=== PATIENT | female | born 1990 | race Caucasian/White ===

== ENCOUNTER 2017-03-06 19:54 | Inpatient (IN) | payer OTHER ==
--- NOTE | ~2017-03-06 | HP ---
Unit #: [id number] #: [id number] Patient: LA ERICKSON [id number] [place] [address] [id number] MR#: [id number] NAME: LA ERICKSON ROOM: [facility] Age: 26 Sex: F Admission Date: 03/06/2017 : 1990 Attending Physician: Jean Marie Roblero M.D. Admitting Physician: Jean Marie Roblero M.D. Primary Care Physician: Primary Care Physician No HISTORY AND PHYSICAL HISTORY OF PRESENT ILLNESS La is a 26 year old admitted to [facility] because of her drug use. She shoots heroin. PAST MEDICAL HISTORY 1. Long history of opioid abuse to include IV heroin. 2. Hepatitis C. PAST SURGICAL HISTORY Fractured left clavicle with ORIF. ALLERGIES Penicillin, Phenergan. SOCIAL HISTORY Smokes 1 pack per day. Denies alcohol. Admits to a long history of opioid abuse to include IV heroin. FAMILY HISTORY Medically noncontributory. REVIEW OF SYSTEMS CONSTITUTIONAL: No fever or chills. HEENT: Denies any sore throat, ear pain or runny nose. CARDIOVASCULAR: Denies chest pain, irregular heart rhythm or palpitations. CHEST: Denies shortness of breath or cough. No hemoptysis. GASTROINTESTINAL: Denies nausea, vomiting, diarrhea or chronic constipation. ENDOCRINE: Denies history of increased thirst or urination. No recent significant weight loss or gain. GENITOURINARY: Denies dysuria, frequency, or hematuria. SKIN: Denies any rashes. HEMATOLOGIC: Denies history of increased bleeding or bruising. MUSCULOSKELETAL: Denies any hot, swollen joints. No generalized muscle pain. NEUROLOGIC: Denies problems with vision or speech. No frequent, severe headaches. No numbness, tingling or weakness in any extremities. Denies loss of bladder or bowel control. CURRENT MEDICATIONS 1. Celexa 20 mg daily. 2. Trazodone 150 mg q.h.s. p.r.n. 3. Detox protocol. Unit #: [id number] #: [id number] Patient: LA ERICKSON PHYSICAL EXAMINATION GENERAL: Alert, well-nourished, in no apparent distress. VITAL SIGNS: Blood pressure 100/50, heart rate 78, respirations 16, temperature 98.6. WEIGHT: 160. HEIGHT: 5 feet 6 inches. SKIN: Warm and dry without rash or lesion. HEENT: Normocephalic. TMs not viewed. Oral and nasal passages clear. Conjunctivae clear. PERRLA. EOMs intact. NECK: Supple without lymphadenopathy or thyromegaly. HEART: Regular rate and rhythm without murmur. LUNGS: Clear. ABDOMEN: Soft, nontender. : Not done. EXTREMITIES: No evidence of cyanosis, clubbing or edema. Moves all without focal deficit. NEUROLOGICAL: Grossly within normal limits. Cranial Nerves: II: Visual arellano are intact. III, IV AND : Extraocular movements are intact. Pupils are equal, round and reactive to light. V: Facial sensation is grossly normal. VII: Facial movements and expression are normal. VIII: Auditory acuity grossly intact. IX, X: Uvula is midline. Phonation is normal. XI: Patient shrugs shoulders and turns head normally. XII: Tongue protrudes in the midline. Sensory and Motor Function: Sensory and motor sensation is grossly normal. Motor: moves all extremities well. Coordination: Gait is normal. Deep Tendon Reflexes: Intact. IMPRESSION Psychiatric admission. RECOMMENDATIONS PSYCHIATRIC: Per psychiatrist. MEDICAL: See no contraindications to participate in facility's activities. MEDICAL PROGNOSIS Good. MEDICAL CONDITION Stable. Dictated by... Dieter OsmanAHeath. for Jaden Lyn/sonia TD: 03/07/2017 19:53 JOB #: [id number] Unit #: [id number] #: [id number] Patient: LA ERICKSON HISTORY AND PHYSICAL Page 1 of 1 X Giovanna Narvaez X HISTORY AND PHYSICAL
--- NOTE | ~2017-03-06 | PN ---
Unit #: [id number] #: [id number] Patient: LUIS MIGUEL ERICKSON [id number] [facility] [address] [place] [address] [id number] MR#: [id number] NAME: LUIS MIGUEL ERICKSON ROOM: [facility] Age: 26 Sex: F Admission Date: 03/06/2017 : 1990 Attending Physician: Jean Marie Roblero M.D. Admitting Physician: Jean Marie Roblero M.D. Primary Care Physician: Jennifer Primary Care Physician TOMMY PROGRESS NOTES DATE 03/08/2017 SUBJECTIVE UPDATE This is a 26-year-old, white female who is here in the hospital with issues of opioid dependency and withdrawal as well as benzodiazepine dependency and withdrawal with significant depression. Patient reports feeling somewhat better today. Still notably having problems with sleep, appetite, restlessness, aches and pains, and twitching in the legs. Patient has been trying to attend some groups and activities, but still fairly isolative to self. No active SI today. MENTAL STATUS EXAM General appearance is a moderately groomed, white female. Improved eye contact today. Speech was clear and coherent with normal prosody. Mood was "a little better" with a congruent affect. Thought process and content were fairly organized and linear. No overt evidence of psychosis. Patient denied any active SI or HI today. Patient's memory was grossly intact. Associations were normal. She is alert and oriented x3. Cognitive function seems to be at baseline. Insight and judgment is limited, but improving. RECOMMENDATIONS Continue patient's admission for ongoing detox issues with symptoms as noted above. Vital signs appear to be fairly well managed at this time as other somatic symptoms resolve. Mood also seems to be showing improvement with no active SI. Will continue to monitor. Likely disposition soon if progress continues. Will continue to encourage compliance with groups and activities, socialization, and ambulation. Patient is in agreement. Dictated by... Jean Marie Roblero M.D. SARAN/ashley TD: 03/10/2017 07:44 JOB #: [id number] Unit #: [id number] #: [id number] Patient: LUIS MIGUEL ERICKSON PROGRESS NOTES Page 1 of 1 X Jean Marie Roblero MD PROGRESS NOTE
--- NOTE | ~2017-03-06 | PA ---
Unit #: [id number] #: [id number] Patient: LUIS MIGUEL ERICKSON [id number] [place] [address] [id number] I MR#: [id number] NAME: LUIS MIGUEL ERICKSON ROOM: P173 Age: 26 Sex: F Admission Date: 03/06/2017 : 1990 Date of Assessment: Attending Physician: Jean Marie Roblero M.D. Admitting Physician: Jean Marie Roblero M.D. PSYCHIATRIC ASSESSMENT LOCATION [facility], [facility], room #178, bed #1. DATE OF SERVICE 03/07/2017. INFORMANT The patient and chart both seem reliable. CHIEF COMPLAINT Got to stop using heroin. HISTORY OF PRESENT ILLNESS This is a 26-year-old white female who is admitted to the access services for issues with heroin dependency, Xanax dependency, and depressive symptoms with recent SI. On interview today, the patient was noted to be sleeping, but aroused easily. Reports issues with 2+ years of near daily heroin use of 1 to 2 g IV bore. The patient apparently lost a job recently because of her IV use, overdosing on heroin. She has been living in a prison house, but does have some support through family. The patient is single without children, but reports recent stressors including of other family members, obvious loss of her job, continued drug use, and ongoing depressive symptoms that she has not been treated for. The patient reports apparently overdosing this past weekend and that "scared the crap out of me" and now she is seeking treatment. The patient is open to aspects of care of all forms inpatient or out. The patient initially told the access personnel that she uses Xanax daily. The patient told me she uses 2 to 3 times a week so it is unclear how much she actually has been using, but her current detox symptoms include aches and pains, chills, feeling excessively fatigue, sleepiness, poor appetite, upset stomach, and, of course, depression and anxiety. She is denying any current SI at this time, but apparently was reporting to the multimedia educational specialist initially in the [facility]. Overall, the patient was noted to be somewhat diaphoretic, but no tremors were noted at this point. The patient's last use of any substance was yesterday afternoon prior to admission. PAST PSYCHIATRIC HISTORY Subjective depression, but no official treatment inpatient or out, unclear about recent overdose, being suicide attempt or accidental. The patient was vague in her response, but no history of hallucinations, HI, or being on psychiatric medications. Unit #: [id number] #: [id number] Patient: LUIS MIGUEL ERICKSON FAMILY HISTORY Significant for at least 2 family members including a sister had issues with drugs and alcohol beyond noncontributory. SOCIAL HISTORY The patient is single, no children, lives at a prison house, was recently fired from her job at the [employer], has some college education and support through peripheral family. MEDICAL HISTORY Has a history of hepatitis C. MEDICATION HISTORY The patient is not on any home medications at this time. Current medications in hospital include detox protocols as well as standard p.r.n. medications. ALLERGIES The patient denied any drug allergies with me, but according to chart, is allergic to amoxicillin and Phenergan. SUBSTANCE ABUSE HISTORY As noted above. The patient denied any issues with alcohol. She denied any serious issues with withdrawal in the past. The patient has been sent to the [facility] once, but beyond that, no other official treatment programs. MENTAL STATUS EXAMINATION General appearance, this is a limitedly groomed white female, appears older than stated age, somewhat disheveled, cooperative and responsive to interview process. Speech was clear and coherent with normal prosody. Mood was depressed with a constricted affect. Thought process and content were grossly organized and linear. No overt evidence of psychosis. The patient denied any active SI at this time. The patient's memory was grossly intact. Associations were normal. She was alert and oriented x4. Cognitive function was at baseline. Insight and judgment are poor. ASSETS AND LIABILITIES Assets include support through [employer] and family. Liabilities include no full medical detox previously, continued substance abuse, unemployment, untreated depression. ADMITTING DIAGNOSES 1. Opioid dependency with possible withdrawal. 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 3. Major depressive disorder, recurrent, moderate at this point. 4. Hepatitis C. PSYCHIATRIC PLAN To continue the patient's admission for safety and stabilization for ongoing detox symptoms from both opioids and benzodiazepines. The patient is on appropriate detox for each and being monitored closely. In addition, we will start the patient on Celexa 20 mg by mouth for depression and anxiety concerns, and monitor response as well. Treatment goal will be resolution of symptoms in both detox and mood issues in a safe controlled environment with monitoring for effects of medications. DISCHARGE PLANNING Unit #: [id number] #: [id number] Patient: LUIS MIGUEL ERICKSON Most likely including community or psychiatric resources as well as CD counseling in addition to resources if patient is applicable including residential if that is a possibility. ESTIMATED LENGTH OF STAY Approximately 3 to 4 days depending on the patient's progress and response to treatment. Dictated by... Jean Marie Roblero M.D. SARAN/kelley TD: 03/07/2017 13:05 JOB #: [id number] PSYCHIATRIC ASSESSMENT Page 1 of 1 X Jean Marie Roblero MD X PSYCHIATRIC ASSESSMENT
--- NOTE | ~2017-03-06 | DS ---
Unit #: [id number] #: [id number] Patient: LUIS MIGUEL ERICKSON [id number] [place] [address] [id number] I MR#: [id number] NAME: LUIS MIGUEL ERICKSON ROOM: [facility] Age: 26 Sex: F Admission Date: 03/06/2017 : 1990 Discharge Date: 03/09/2017 Attending Physician: Jean Marie Roblero M.D. Primary Care Physician: Primary Care Physician No DISCHARGE SUMMARY REASON FOR ADMISSION Detox from combination of opiates, benzodiazepines, and depression. DIAGNOSTIC STUDIES PERTINENT LABORATORY DATA: The patient had routine blood work done which included a CMP that was with a normal parameter to the exception of AST elevated at 71, ALT elevated at 112 which was in keeping with the patient's history of hepatitis C and substance abuse with a WBC count of 1. Her CBC noted to be at 10.6. Rest of her CBC was unimpressive. The patient did not supply urine sample for urinalysis or tox screen. HOSPITAL COURSE The patient was admitted for safety and stabilization for ongoing issues with opiate and sedative hypnotic dependencies and subsequent withdrawal. The patient was placed on appropriate withdrawal protocols for both. The patient had initial symptoms that included poor sleep, aches and pains, chills, fever, GI upset, and of course anxiety and depression. Apparently, in the initial evaluation she had made mention of having vague suicidal thoughts related to this detox concern and continue substance abuse. Overall, the patient tolerated the care well and progressed normally as was expected. She was encouraged to go to groups and activities, but it was somewhat limited overall. At the time of discharge, she was denying any acute signs of detox. She was denying any active SI or mood issues. She was inquiring about outpatient referral program for CD treatment and Psych treatment, and those materials were to be given to her, but she had not made a dedicated choice yet. Overall, it was felt the patient had reached maximum benefit from admission and appropriate for stepdown. In regard to the patient's mood, she was started on Celexa 20 mg daily by mouth to help with depression and anxiety. She tolerated it well with her being planned to continue on an outpatient basis when she was discharged. DISCHARGE DIAGNOSES 1. Opiate dependency with withdrawal. 2. Sedative-hypnotic dependency with withdrawal. 3. Major depressive disorder, moderate. 4. Hepatitis C. DISCHARGE INSTRUCTIONS Discharge followup care will be with community CD and Psych resources to provided to her by social group worker. DISCHARGE MEDICATIONS Celexa 20 mg daily by mouth for depression and anxiety. Unit #: [id number] #: [id number] Patient: LUIS MIGUEL ERICKSON CONDITION AT DISCHARGE Improving. PROGNOSIS Moderate given the patient's reluctance to dedicate to official outpatient programming. DISCHARGE DIET Regular. DISCHARGE ACTIVITY As tolerated with compliance with sobriety encouraged, and followup care with the primary care doctor for hepatitis C issues. Dictated by... Jean Marie Roblero M.D. SARAN/phoenix TD: 03/09/2017 09:18 JOB #: [id number] DISCHARGE SUMMARY Page 1 of 1 X Jean Marie Roblero MD X DISCHARGE SUMMARY
[2017-03-07 09:50] LABS: BASOPHIL# 0.1 X10e3 (0-0.3); BASOPHIL% 0.8 % (0-2.5); EOSINOPHIL# 0.4 X10e3 (0-0.7); EOSINOPHIL% 3.5 % (0.0-7.0); HEMATOCRIT 40.9 % (35.0-45.0); HEMOGLOBIN 13.7 gm/dL (12.0-16.0); LYMPHOCYTE# 3.2 X10e3 (1.0-3.5); LYMPHOCYTE% 30.4 % (17.0-45.0); MEAN CORPUSCULAR HEMOGLOBIN 30.6 PG (28-34); MEAN CORPUSCULAR HGB CONC 33.6 g/dL (30-36); MEAN PLATELET VOLUME 7.3 FL (6.5-11.5); MONOCYTE# 0.9 X10e3 (0-1.0); NEUTROPHIL# 6.1 X10e3 (1.5-7.1); NEUTROPHIL% 57.3 % (40-75); PLATELET COUNT 340 X10e3 (140-420); RED BLOOD COUNT 4.49 X10e (3.90-5.30); RED CELL DISTRIBUTION WIDTH 13.7 % (11.0-15.5); WHITE BLOOD COUNT 10.6 X10e3 (4.0-10.5)
[2017-03-07 09:57] LABS: ALBUMIN SERUM 3.5 g/dL (3.5-5.0); BILIRUBIN,TOTAL 0.8 mg/dL (0.2-2.0); BUN/CREATININE RATIO 11.42; CALCIUM SERUM 9.4 mg/dL (8.4-10.2); CREATININE SERUM 0.7 mg/dL (0.6-1.4); GLOM FILT RATE Estimated 119.6 mL/min (>60); POTASSIUM 4.3 mmol/L (3.5-5.1); PROTEIN TOTAL SERUM 7.1 g/dL (6.0-8.3)
[2017-03-07 10:05] LABS: DIFF IND NO
[2017-03-09 11:02] LABS: URINE APPEARANCE CLEAR; URINE BILIRUBIN NEG (NEG); URINE BLOOD NEG (NEG); URINE COLOR DK YELLOW; URINE GLUCOSE NEG (NEG); URINE KETONE TRACE (NEG); URINE LEUKOCYTE ESTERASE NEG (NEG); URINE NITRATE NEG (NEG); URINE PROTEIN NEG (NEG); URINE SPECIFIC GRAVITY 1.023 (1.003-1.035)
[2017-03-09 11:14] LABS: AMPHETAMINE NEG (NEG); BARBITURATES NEG (NEG); BENZODIAZEPINES POS (NEG); COCAINE NEG (NEG); MARIJUANA NEG (NEG); OPIATES NEG (NEG); TRICYCLIC ANTIDEPRESSANTS NEG (NEG); U METHADONE NEG (NEG)
== END 2017-03-09 11:15 | DRG 897 ==
LOC: P1E 19:54
PROVIDERS: Psychiatry & Neurology Psychiatry
PROC: HZ2ZZZZ Detoxification Services for Substance Abuse Treatment (ICD-10-PCS; principal; 2017-03-06)
DX: F11.23 Opioid dependence with withdrawal (principal); F33.1 Major depressive disorder, recurrent, moderate; F13.230 Sedative, hypnotic or anxiolytic dependence with withdrawal, uncomplicated; B19.20 Unspecified viral hepatitis C without hepatic coma; Z88.0 Allergy status to penicillin; Z88.8 Allergy status to other drugs, medicaments and biological substances; F17.210 Nicotine dependence, cigarettes, uncomplicated
CPT/HCPCS: 80053; 80307; 81003; 85025